=== PATIENT | male | born 1945 | race Caucasian/White ===

== ENCOUNTER → 2016-07-04 | Outpatient (REF) | payer OTHER | LOC: M LAB REF 16:49 | PROVIDERS: ATTEND Internal Medicine Medical Oncology | DX: C18.9 Malignant neoplasm of colon, unspecified (principal) ==

== ENCOUNTER → 2017-01-11 | Outpatient (REF) | payer OTHER | LOC: M LAB REF 12:41 | PROVIDERS: ATTEND Internal Medicine Medical Oncology | DX: C18.9 Malignant neoplasm of colon, unspecified (principal) ==

== ENCOUNTER → 2017-07-11 | Outpatient (REF) | payer MEDICARE, OTHER ==
[2017-07-12 10:23] LABS: CARCINOEMBRYONIC ANTIGEN 0.6 NG/ML (<2.5)
== END ==
LOC: M LAB REF 13:31
DX: C18.9 Malignant neoplasm of colon, unspecified (principal)
CPT/HCPCS: 82378

== ENCOUNTER → 2018-08-15 | Outpatient (REF) | payer MEDICARE, OTHER ==
[2018-08-15 14:26] LABS: CHOLESTEROL RISK RATIO 3.115 (<5)
[2018-08-15 14:58] LABS: HEMOGLOBIN A1c 5.6 %
== END ==
LOC: M LAB REF 13:37
PROVIDERS: ATTEND Internal Medicine Cardiovascular Disease
DX: E78.49 Other hyperlipidemia (principal); E11.9 Type 2 diabetes mellitus without complications

== ENCOUNTER 2022-10-03 09:41 | Day surgery (SDC) | payer MEDICARE, OTHER ==
[~2022-10-03] VITALS: Ht 177.8 cm; Wt 83.6 kg
[~2022-10-03 09:41] MED LIST: BSS IRRIG/VANCO(10MG)/TOBRA(5MG)/EPINEPH(1:1000-0.5CC)500ML BAG-ORONLY IR ONE; CEFUROXIME 1MG/0.1ML INTRACAMERAL INJ As Ordered ONE; CYCLOPENTOLATE 1% OPHTH SOLN 2ML BTL OS SCH; LIDOCAINE 1% SDV 5ML VIAL As Ordered ONE; LIDOCAINE 3.5 % 1ML OPHTH TOPICAL GEL OU ONE; OFLOXACIN 0.3 % (OCUFLOX) OPTH SOL 5ML OS ONE; PHENYLEPHRINE 10% OPHTH SOL 5ML OS PRN; PHENYLEPHRINE 2.5% OPHTH SOL 2ML OS SCH; TROPICAMIDE 1% OPHTH SOLN 15ML OS SCH
[2022-10-03] MEDS ORDERED: fentaNYL 100 MCG/2 ML INJECTION As Ordered ONE (12:04)
[2022-10-03] MEDS ORDERED: MIDAZOLAM INJ 2MG/2ML VIAL As Ordered ONE (12:04)
[2022-10-03] MEDS ORDERED: hydrALAZINE 20MG/ML 1ML VIAL As Ordered ONE (12:08)
[2022-10-03] MEDS ORDERED: LABETALOL 100MG/20ML VIAL As Ordered ONE (12:20)
[2022-10-03 12:39] VITALS: BP 162/80; TEMP 97; O2SAT 97
== END 2022-10-03 13:00 | disposition home or self-care (01) ==
LOC: M SDC 09:41
PROVIDERS: ATTEND Ophthalmology
DX: H25.12 Age-related nuclear cataract, left eye (principal); H40.1131 Primary open-angle glaucoma, bilateral, mild stage; Z85.46 Personal history of malignant neoplasm of prostate; Z85.00 Personal history of malignant neoplasm of unspecified digestive organ
CPT/HCPCS: 66991; C1783; J0360; J0697; J1920; J2250; J3010; V2632

== ENCOUNTER → 2024-09-17 | Outpatient (CLI) | payer MEDICARE, OTHER | LOC: M PLARAD 13:08 | PROVIDERS: ATTEND Otolaryngology | DX: H90.3 Sensorineural hearing loss, bilateral (principal); G31.9 Degenerative disease of nervous system, unspecified; R90.82 White matter disease, unspecified; J32.2 Chronic ethmoidal sinusitis ==